=== PATIENT | male | born 1960 | race American Indian/Alaskan Native ===

== ENCOUNTER 2019-03-11 16:35 | Emergency (ER) | payer MEDICARE ==
--- NOTE | 2019-03-11 17:32 | Event Note ---
ED Screening Note Date of service: 03/11/19 Time: 17:28 ED Screening Note: This is a 58 y.o. M. that presents to the ER with BLE edema and pain with SOB for 3 days. PMH CHF, HTN, COPD on oxygen, & psoriasis This initial assessment/diagnostic orders/clinical plan/treatment(s) is/are subject to change based on patients health status, clinical progression and re- assessment by fellow clinical providers in the ED. Further treatment and workup at subsequent clinical providers discretion. Patient/guardian urged not to elope from the ED as their condition may be serious if not clinically assessed and managed. Initial orders include: Labs and CXR
[2019-03-11 18:01] LABS: Basophils % (Auto) 0.7 % (0.0-1.8); Eosinophils # (Auto) 0.9 K/mm3 (0.0-0.4); Eosinophils % (Auto) 13.8 % (0.0-4.3); Hematocrit 41.8 % (35.5-45.6); Lymphocytes % (Auto) 16.5 % (13.4-35.0); Mean Corpuscular HGB Conc 33 % (32-34); Mean Corpuscular Volume 81 fl (84-94); Monocytes # (Auto) 0.3 K/mm3 (0.0-0.8); Monocytes % (Auto) 5.4 % (0.0-7.3); Platelet Count 299 K/mm3 (140-440); Red Blood Count 5.14 M/mm3 (3.65-5.03); Red Cell Distribution Width 17.7 % (13.2-15.2)
--- NOTE | 2019-03-11 18:15 | XRay Report ---
CHEST 2 VIEWS INDICATION / CLINICAL INFORMATION: BLE edema and SOB. COMPARISON: Chest x-ray done on 11/20/2018. FINDINGS: SUPPORT DEVICES: None. HEART / MEDIASTINUM: No significant abnormality. LUNGS / PLEURA: Stable chronic basilar predominant interstitial lung disease. No superimposed acute c onsolidation or pleural effusion. No pneumothorax. ADDITIONAL FINDINGS: No significant additional findings. IMPRESSION: 1. No acute findings. Stable chronic interstitial lung disease. Signer Name: Eliel Larson MD Signed: 03/11/2019 6:11 PM Workstation Name: [id number]
[2019-03-11 18:39] LABS: Alanine Aminotransferase 10 units/L (7-56); Albumin 3.2 g/dL (3.9-5); BUN/Creatinine Ratio 9; Blood Urea Nitrogen 8 mg/dL (9-20); Calcium 8.7 mg/dL (8.4-10.2); Hemolysis Index 33
[2019-03-11] MEDS ORDERED: ONDANSETRON 4 MG ODT TAB PO ONE (22:14)
[2019-03-11] MEDS ORDERED: HYDROcodone/ACETAMINOPHEN 5-325 MG TAB PO ONE (22:14)
[2019-03-11] MEDS ORDERED: ONDANSETRON 4 MG/2 ML INJ IV ONE (22:41)
[2019-03-11] MEDS ORDERED: MORPHINE 4 MG/1 ML INJ IV ONE (22:41)
[2019-03-11 22:49] VITALS: BP 137/83
[2019-03-12] MEDS ORDERED: MORPHINE 4 MG/1 ML INJ IV ONE (00:27)
[2019-03-12] MEDS ORDERED: oxyCODONE /ACETAMINOPHEN 5-325MG TAB PO ONE (01:25)
[2019-03-12] MEDS ORDERED: ONDANSETRON 4 MG ODT TAB PO ONE (01:26)
--- NOTE | 2019-03-12 01:32 | Emergency Department Report ---
ED General Adult HPI - General Chief complaint: Skin Rash Stated complaint: BURNING LEG PAIN Time Seen by Provider: 03/11/19 17:28 Source: patient Mode of arrival: Stretcher Limitations: No Limitations - History of Present Illness Initial comments: The patient presents to the emergency department for chief complaint of bilateral bone pain of his legs and burning sensation of the skin. Patient states the symptoms started after starting Humira treatments for psoriasis 2 days ago. Patient denies any recent fever, body aches, abdominal pain, headache. -: Sudden Location: lower extremity Radiation: non-radiation Severity scale (0 -10): 7 Quality: burning, dull Consistency: constant Improves with: none Worsens with: none Associated Symptoms: denies other symptoms Treatments Prior to Arrival: none - Related Data Home Medications Medication Instructions Recorded Confirmed Last Taken Aspirin EC [Halfprin EC] 81 mg PO QDAY 03/08/18 01/18/19 01/17/19 Ipratropium/Albuterol Sulfate 1 spray IH BID 03/08/18 01/18/19 01/17/19 [Combivent Respimat] raNITIdine HCl [Zantac] 150 mg PO DAILY 03/08/18 01/18/19 01/17/19 Previous Rx's Medication Instructions Recorded Last Taken Type ALBUTEROL NEB's [Proventil 0.083% 2.5 mg IH Q4HRT PRN #120 nebu 03/12/18 01/17/19 Rx NEBS] AtorvaSTATin [Lipitor] 20 mg PO DAILY #30 tablet 03/12/18 01/17/19 Rx Carvedilol [Coreg] 6.25 mg PO BID #60 tablet 03/12/18 01/17/19 Rx Fluticasone/Vilanterol [Breo 1 each IH DAILY #30 aer.pow.ba 03/12/18 01/17/19 Rx Ellipta 100-25 Mcg INH] Furosemide [Lasix TAB] 20 mg PO QDAY #30 tablet 03/12/18 01/17/19 Rx Hydrocortisone 2.5% [Hytone 2.5% 1 applicatio TP BID #1 tube 03/12/18 01/17/19 Rx CREAM] Ipratropium/Albuterol Sulfate 1 ampul IH TIDRT #120 ampul.neb 03/12/18 01/17/19 Rx [DUONEB *Not for PRN Use*] Potassium Chloride [Klor-Con M20] 20 meq PO DAILY #30 tab.er.prt 03/12/18 01/17/19 Rx Celecoxib [celeBREX] 100 mg PO BID #60 cap 01/20/19 Unknown Rx methylPREDNISolone [Medrol 4MG 4 mg PO DAILY #1 tab.ds.pk 01/20/19 Unknown Rx DOSEPAK (21 tabs)] oxyCODONE /ACETAMINOPHEN [Percocet 2 tab PO Q6H PRN #20 tablet 01/20/19 Unknown Rx 5/325 mg] HYDROcodone/APAP 7.5-325 [Catlin 1 each PO Q6HR PRN #15 tablet 03/12/19 Unknown Rx 7.5/325] Allergies Allergy/AdvReac Type Severity Reaction Status Date / Time No Known Allergies Allergy Unverified 03/07/18 15:12 ED Review of Systems ROS: Stated complaint: BURNING LEG PAIN Other details as noted in HPI Comment: All other systems reviewed and negative Constitutional: denies: chills, fever Eyes: denies: eye pain, eye discharge, vision change ENT: denies: ear pain, throat pain Respiratory: denies: cough, shortness of breath, wheezing Cardiovascular: denies: chest pain, palpitations Endocrine: no symptoms reported Gastrointestinal: denies: abdominal pain, nausea, diarrhea Genitourinary: denies: urgency, dysuria Musculoskeletal: denies: back pain, joint swelling, arthralgia Skin: denies: rash, lesions Neurological: denies: headache, weakness, paresthesias Psychiatric: denies: anxiety, depression Hematological/Lymphatic: denies: easy bleeding, easy bruising ED Past Medical Hx - Past Medical History Hx Hypertension: Yes Hx Congestive Heart Failure: Yes Hx Diabetes: No Hx Deep Vein Thrombosis: No Hx GERD: Yes Hx Arthritis: Yes Hx Asthma: No Hx COPD: No - Surgical History Hx Pacemaker: No Hx Internal Defibrillator: No Hx Appendectomy: Yes - Social History Smoking Status: Former Smoker Substance Use Type: None - Medications Home Medications: Home Medications Medication Instructions Recorded Confirmed Last Taken Type Aspirin EC [Halfprin EC] 81 mg PO QDAY 03/08/18 01/18/19 01/17/19 History Ipratropium/Albuterol Sulfate 1 spray IH BID 03/08/18 01/18/19 01/17/19 History [Combivent Respimat] raNITIdine HCl [Zantac] 150 mg PO DAILY 03/08/18 01/18/19 01/17/19 History ALBUTEROL NEB's [Proventil 0.083% 2.5 mg IH Q4HRT PRN #120 nebu 03/12/18 9 01/17/19 Rx NEBS] AtorvaSTATin [Lipitor] 20 mg PO DAILY #30 tablet 03/12/18 01/18/19 01/17/19 Rx Carvedilol [Coreg] 6.25 mg PO BID #60 tablet 03/12/18 01/18/19 01/17/19 Rx Fluticasone/Vilanterol [Breo 1 each IH DAILY #30 aer.pow.ba 03/12/18 01/18/19 01/17/19 Rx Ellipta 100-25 Mcg INH] Furosemide [Lasix TAB] 20 mg PO QDAY #30 tablet 03/12/18 01/18/19 01/17/19 Rx Hydrocortisone 2.5% [Hytone 2.5% 1 applicatio TP BID #1 tube 03/12/18 01/18/19 01/17/19 Rx CREAM] Ipratropium/Albuterol Sulfate 1 ampul IH TIDRT #120 ampul.neb 03/12/18 01/18/19 01/17/19 Rx [DUONEB *Not for PRN Use*] Potassium Chloride [Klor-Con M20] 20 meq PO DAILY #30 tab.er.prt 03/12/1801/1801/17/19 Rx Celecoxib [celeBREX] 100 mg PO BID #60 cap 01/20/19 Unknown Rx methylPREDNISolone [Medrol 4MG 4 mg PO DAILY #1 tab.ds.pk 01/20/19 Unknown Rx DOSEPAK (21 tabs)] oxyCODONE /ACETAMINOPHEN [Percocet 2 tab PO Q6H PRN #20 tablet 01/20/19 Unknown Rx 5/325 mg] HYDROcodone/APAP 7.5-325 [Catlin 1 each PO Q6HR PRN #15 tablet 03/12/19 Unknown Rx 7.5/325] ED Physical Exam - General Limitations: No Limitations General appearance: alert, in no apparent distress - Head Head exam: Present: atraumatic, normocephalic - Eye Eye exam: Present: normal appearance, PERRL, EOMI - ENT ENT exam: Present: mucous membranes moist - Neck Neck exam: Present: normal inspection - Respiratory Respiratory exam: Present: normal lung sounds bilaterally. Absent: respiratory distress - Cardiovascular Cardiovascular Exam: Present: regular rate, normal rhythm. Absent: systolic murmur, diastolic murmur, rubs, gallop - GI/Abdominal GI/Abdominal exam: Present: soft, normal bowel sounds. Absent: distended, tenderness - Rectal Rectal exam: Present: deferred - Extremities Exam Extremities exam: Present: normal inspection - Back Exam Back exam: Present: normal inspection - Neurological Exam Neurological exam: Present: alert, oriented X3, CN II-XII intact. Absent: motor sensory deficit - Psychiatric Psychiatric exam: Present: normal affect, normal mood - Skin Skin exam: Present: warm, dry, intact, normal color, rash (scaly skin throughout) ED Course Vital Signs 03/11/19 03/11/19 03/11/19 17:24 21:39 21:48 Temperature 98.1 F Pulse Rate 100 H 89 Respiratory 22 17 18 Rate Blood Pressure 117/78 Blood Pressure 126/66 [Right] O2 Sat by Pulse 100 99 Oximetry 03/11/19 22:48 Temperature Pulse Rate 95 H Respiratory 20 Rate Blood Pressure Blood Pressure 137/83 [Right] O2 Sat by Pulse 95 Oximetry ED Medical Decision Making - Lab Data Result diagrams: 03/11/19 17:46 03/11/19 17:46 Lab Results 03/11/19 03/11/19 03/11/19 Range/Units 17:46 17:46 17:46 WBC 6.3 (4.5-11.0) K/mm3 RBC 5.14 H (3.65-5.03) M/mm3 Hgb 14.0 (11.8-15.2) gm/dl Hct 41.8 (35.5-45.6) % MCV 81 L (84-94) fl MCH 27 L (28-32) pg MCHC 33 (32-34) % RDW 17.7 H (13.2-15.2) % Plt Count 299 (140-440) K/mm3 Lymph % (Auto) 16.5 (13.4-35.0) % Darke % (Auto) 5.4 (0.0-7.3) % Eos % (Auto) 13.8 H (0.0-4.3) % Baso % (Auto) 0.7 (0.0-1.8) % Lymph # 1.0 L (1.2-5.4) K/mm3 Darke # 0.3 (0.0-0.8) K/mm3 Eos # 0.9 H (0.0-0.4) K/mm3 Baso # 0.0 (0.0-0.1) K/mm3 Seg Neutrophils % 63.6 (40.0-70.0) % Seg Neutrophils # 4.0 (1.8-7.7) K/mm3 ESR (0-20) mm/Hr Sodium 139 (137-145) mmol/L Potassium 3.6 (3.6-5.0) mmol/L Chloride 102.6 (98-107) mmol/L Carbon Dioxide 22 (22-30) mmol/L Anion Gap 18 mmol/L BUN 8 L (9-20) mg/dL Creatinine 0.9 (0.8-1.5) mg/dL Estimated GFR > 60 ml/min BUN/Creatinine Ratio 9 % Glucose 67 L (75-100) mg/dL Calcium 8.7 (8.4-10.2) mg/dL Total Bilirubin 0.50 (0.1-1.2) mg/dL AST 31 (5-40) units/L ALT 10 (7-56) units/L Alkaline Phosphatase 94 (35-129) units/L Total Creatine Kinase (55-170) units/L Troponin T < 0.010 (0.00-0.029) ng/mL NT-Pro-B Natriuret Pep 717.2 (0-900) pg/mL Total Protein 8.4 H (6.3-8.2) g/dL Albumin 3.2 L (3.9-5) g/dL Albumin/Globulin Ratio 0.6 % 03/11/19 03/11/19 Range/Units 17:46 17:46 WBC (4.5-11.0) K/mm3 RBC (3.65-5.03) M/mm3 Hgb (11.8-15.2) gm/dl Hct (35.5-45.6) % MCV (84-94) fl MCH (28-32) pg MCHC (32-34) % RDW (13.2-15.2) % Plt Count (140-440) K/mm3 Lymph % (Auto) (13.4-35.0) % Darke % (Auto) (0.0-7.3) % Eos % (Auto) (0.0-4.3) % Baso % (Auto) (0.0-1.8) % Lymph # (1.2-5.4) K/mm3 Darke # (0.0-0.8) K/mm3 Eos # (0.0-0.4) K/mm3 Baso # (0.0-0.1) K/mm3 Seg Neutrophils % (40.0-70.0) % Seg Neutrophils # (1.8-7.7) K/mm3 ESR 40 (0-20) mm/Hr Sodium (137-145) mmol/L Potassium (3.6-5.0) mmol/L Chloride (98-107) mmol/L Carbon Dioxide (22-30) mmol/L Anion Gap mmol/L BUN (9-20) mg/dL Creatinine (0.8-1.5) mg/dL Estimated GFR ml/min BUN/Creatinine Ratio % Glucose (75-100) mg/dL Calcium (8.4-10.2) mg/dL Total Bilirubin (0.1-1.2) mg/dL AST (5-40) units/L ALT (7-56) units/L Alkaline Phosphatase (35-129) units/L Total Creatine Kinase 170 (55-170) units/L Troponin T (0.00-0.029) ng/mL NT-Pro-B Natriuret Pep (0-900) pg/mL Total Protein (6.3-8.2) g/dL Albumin (3.9-5) g/dL Albumin/Globulin Ratio % - Medical Decision Making Results discussed with patient Critical care attestation.: If time is entered above; I have spent that time in minutes in the direct care of this critically ill patient, excluding procedure time. ED Disposition Clinical Impression: Leg pain, bilateral Disposition: DC-01 TO HOME OR SELFCARE Is pt being admited?: No Does the pt Need Aspirin: No Condition: Stable Additional Instructions: return if worse Please follow up with your debate director as discussed Referrals: PRIMARY CARE, [Primary Care Provider] - 3-5 Days [facility] [Provider Group] - 3-5 Days [facility] [Provider Group] - 3-5 Days JOHNATHAN VELARDE MD [Staff Physician] - 3-5 Days Time of Disposition: 01:31
== END 2019-03-12 01:22 | disposition home or self-care (01) ==
LOC: ED 16:35
DX: M79.661 Pain in right lower leg (principal); M79.662 Pain in left lower leg; I11.0 Hypertensive heart disease with heart failure; I50.9 Heart failure, unspecified; K21.9 Gastro-esophageal reflux disease without esophagitis; Z90.49 Acquired absence of other specified parts of digestive tract; Z79.82 Long term (current) use of aspirin; Z79.899 Other long term (current) drug therapy
CPT/HCPCS: 36415; 71046; 80053; 82550; 83880; 84484; 85025; 85652; 96374; 96375; 96376; 99284; J2270; J2405; Q0162